=== PATIENT | male | born 1955 | race Two or more races ===

== ENCOUNTER 2020-09-14 12:04 | Outpatient (CLI) | payer OTHER ==
[~2020-09-14 12:04] MED LIST: GILTUSS LIQUID237 ML PO; PROVENTIL HFA6.7 GM IH
== END 2020-09-14 12:51 | disposition home or self-care (01) ==
LOC: TOM 12:04
PROVIDERS: ATTEND Internal Medicine
DX: K40.20 Bilateral inguinal hernia, without obstruction or gangrene, not specified as recurrent (principal); K40.21 Bilateral inguinal hernia, without obstruction or gangrene, recurrent; K74.69 Other cirrhosis of liver; K80.80 Other cholelithiasis without obstruction